=== PATIENT | female | born 1930 | race African-American/Black ===

== ENCOUNTER 2016-12-10 13:27 | Outpatient (CLI) | payer MEDICARE, MEDICAID ==
[2016-12-10 14:14] LABS: Anion Gap 18 mmol/L (10-20); BUN (Urea Nitrogen) 25 mg/dL (9.8-20.1); Calc. Creatinine Clearance 0 mL/min (70-130); Calcium 9.8 mg/dL (7.8-10.44); Carbon Dioxide 22 mmol/L (23-31); Chloride 102 mmol/L (98-107); Estimated GFR-MDRD 42; Glucose 181 mg/dL (83-110); Potassium 3.9 mmol/L (3.5-5.1); Sodium 138 mmol/L (136-145)
== END 2016-12-10 13:28 | disposition home or self-care (01) ==
LOC: MADLAB 13:27
PROVIDERS: ATTEND Internal Medicine
DX: N18.9 Chronic kidney disease, unspecified (principal); E11.65 Type 2 diabetes mellitus with hyperglycemia
CPT/HCPCS: 36415; 80048

== ENCOUNTER 2017-03-03 16:01 | Outpatient (CLI) | payer MEDICARE, MEDICAID ==
[2017-03-03 16:35] LABS: ALT (SGPT) 10 U/L (8-55); AST (SGOT) 12 U/L (5-34); Alkaline Phosphatase 111 U/L (40-150); Anion Gap 13 mmol/L (10-20); BUN (Urea Nitrogen) 31 mg/dL (9.8-20.1); Bilirubin, Total Less than 0.3 mg/dL (0.2-1.2); Calc. Creatinine Clearance 0 mL/min (70-130); Calcium 9.8 mg/dL (7.8-10.44); Carbon Dioxide 25 mmol/L (23-31); Chloride 104 mmol/L (98-107); Estimated GFR-MDRD 40; Globulin 3.6 g/dL (2.4-3.5); Glucose 164 mg/dL (83-110); Potassium 4.3 mmol/L (3.5-5.1); Protein, Total 7.6 g/dL (5.8-8.1); Sodium 138 mmol/L (136-145)
[2017-03-03 17:14] LABS: T4 6.4 ug/dL (4.87-11.72); Thyroid Stimulating Hormone 0.8474 uIU/mL (0.35-4.94)
== END 2017-03-03 16:02 | disposition home or self-care (01) ==
LOC: MADLAB 16:01
PROVIDERS: ATTEND Internal Medicine
DX: E11.65 Type 2 diabetes mellitus with hyperglycemia (principal); E03.9 Hypothyroidism, unspecified; R53.81 Other malaise; Z79.899 Other long term (current) drug therapy
CPT/HCPCS: 36415; 80053; 84436; 84443; 84479

== ENCOUNTER 2017-05-05 16:06 | Outpatient (CLI) | payer MEDICARE, MEDICAID ==
[2017-05-05 17:05] LABS: #Basophils 0.1 thou/uL (0.0-0.2); #Eosinphils 0.2 thou/uL (0.0-0.7); #Lymphocytes 2.4 thou/uL (1.20-3.40); #Monocytes 0.5 thou/uL (0.11-0.59); #Neutrophils 4.6 thou/uL (1.40-6.50); %Basophils 1.2 % (0.0-1.0); %Lymphocytes 30.8 % (21.0-51.0); %Monocytes 6.3 % (0.0-10.0); %Neutrophils 59.7 % (42.0-75.0); Hemoglobin 10.7 g/dL (12.0-16.0); Mean Corpuscular HGB CONC 32.2 g/dL (32.0-36.0); Mean Corpuscular Hemoglobin 26.9 pg (27.0-31.0); Mean Corpuscular Volume 83.6 fl (81.0-99.0); Mean Platelet Volume 10.3 fL (7.4-10.4); Platelet Count 233 thou/uL (130-400); RBC Distribution Width 15.1 % (11.5-14.5); Red Blood Cell (RBC) Count 3.96 mill/uL (4.20-5.40); White Blood Cell (WBC) Count 7.8 thou/uL (4.8-10.8)
[2017-05-05 17:40] LABS: ALT (SGPT) 16 U/L (8-55); AST (SGOT) 19 U/L (5-34); Albumin 4.1 g/dL (3.4-4.8); Alkaline Phosphatase 93 U/L (40-150); Anion Gap 14 mmol/L (10-20); BUN (Urea Nitrogen) 29 mg/dL (9.8-20.1); Bilirubin, Total 0.3 mg/dL (0.2-1.2); Calc. Creatinine Clearance 0 mL/min (70-130); Carbon Dioxide 22 mmol/L (23-31); Cardiac Risk 3.8 (Less than 4.5); Chloride 109 mmol/L (98-107); Cholesterol 181 mg/dl (< 200 Desired); Estimated GFR-MDRD 36; Globulin 4.8 g/dL (2.4-3.5); Glucose 102 mg/dL (83-110); HDL Cholesterol 48 mg/dL (>60 Neg Risk); LDL Cholesterol, Calculated 97 mg/dL; Potassium 4.7 mmol/L (3.5-5.1); Protein, Total 8.9 g/dL (6.0-8.3); Sodium 140 mmol/L (136-145); Triglycerides 180 mg/dL (Less than 150); Uric Acid 5.6 mg/dL (2.6-6.0)
[2017-05-06 21:12] LABS: Iron 81 ug/dL (50-170); Iron Binding Capacity, Total 335 mcg/dL (265-497)
[2017-05-07 18:34] LABS: Creatinine, Urine 63.87 mg/dL (47-110); Microalbumin Urine 14.1 mg/dL (0.5-50.0); Microalbumin/Creat Ratio 220.8 mg/g (Less than 30)
[2017-05-08 00:26] LABS: Creatinine, Urine 64.19 mg/dL (47-110)
== END 2017-05-05 16:07 | disposition home or self-care (01) ==
LOC: MADLABBHPM 16:06
PROVIDERS: ATTEND Family Medicine
DX: E78.5 Hyperlipidemia, unspecified (principal); E11.22 Type 2 diabetes mellitus with diabetic chronic kidney disease; E11.00 Type 2 diabetes mellitus with hyperosmolarity without nonketotic hyperglycemic-hyperosmolar coma (NKHHC); I12.9 Hypertensive chronic kidney disease with stage 1 through stage 4 chronic kidney disease, or unspecified chronic kidney disease; N18.3 Chronic kidney disease, stage 3 (moderate); D63.1 Anemia in chronic kidney disease; N17.9 Acute kidney failure, unspecified; E79.0 Hyperuricemia without signs of inflammatory arthritis and tophaceous disease
CPT/HCPCS: 36415; 80053; 80061; 82043; 82570; 82728; 83540; 83550; 84156; 84550; 85025; 86334

== ENCOUNTER 2017-05-13 09:00 | Outpatient (CLI) | payer MEDICARE, MEDICAID ==
--- NOTE | 2017-05-13 10:47 | ULT ---
RENAL ULTRASOUND: History: Chronic renal disease. FINDINGS: Real-time imaging of the right and left kidneys were performed. The right kidney measures 9.1 cm, th e left kidney 10.2 cm in size. Cortical thinning and mild increased echogenicity to both kidneys are present suggesting underlying medial renal parenchymal disease. Bladder region appears unremarkable . No signs of any cysts, mass, or obstruction. IMPRESSION: Cortical thinning of both kidneys with increased echogenicity to the kidneys noted suggesting medial renal parenchymal disease. POS: [facility]
== END 2017-05-13 09:01 | disposition home or self-care (01) ==
LOC: MADULT 09:00
PROVIDERS: ATTEND Internal Medicine Nephrology
DX: N18.3 Chronic kidney disease, stage 3 (moderate) (principal)
CPT/HCPCS: 76770

== ENCOUNTER 2018-02-22 13:48 | Emergency (ER) | payer MEDICARE, MEDICAID ==
[2018-02-22 14:22] LABS: Clarity Hazy (Clear); Glucose, Urine (Dipstick) Negative (Negative); Leukocyte Large (Negative); Nitrite Negative (Negative); Protein, Urine (Dipstick) 100 mg/dL (Neg-Trace); Urobilinogen 0.2 mg/dL (0.2-1.0)
[2018-02-22 14:23] LABS: Bilirubin Negative (Negative); Blood, Urine Small (Negative)
[2018-02-22 14:24] LABS: Bacteria/HPF 1+ HPF (None Seen); RBC/HPF 0-3 HPF (0-3); Squamous Epithelial 0-3 HPF (0-3)
[2018-02-22] MEDS ORDERED: Ciprofloxacin 500 MG TAB ONE (15:06)
== END 2018-02-22 15:15 | disposition home or self-care (01) ==
LOC: MADERS 13:48
DX: N39.0 Urinary tract infection, site not specified (principal); E11.9 Type 2 diabetes mellitus without complications; I10 Essential (primary) hypertension; M10.9 Gout, unspecified; Z79.899 Other long term (current) drug therapy
CPT/HCPCS: 81003; 81015; 87077; 87086; 87186; 99283

== ENCOUNTER 2018-06-03 17:52 | Emergency (ER) | payer MEDICARE, MEDICAID ==
[~2018-06-03 17:52] MED LIST: Lidocaine 1% 20 ML MDV ONE; Sodium Chloride Irrig Solution 250 ML BOT ONE
[2018-06-03] MEDS ORDERED: Adacel (T-DAP) 0.5 ML VIAL ONE (18:56)
== END 2018-06-03 19:10 | disposition home or self-care (01) ==
LOC: MADERS 17:52
DX: S61.211A Laceration without foreign body of left index finger without damage to nail, initial encounter (principal); G89.29 Other chronic pain; E11.9 Type 2 diabetes mellitus without complications; I10 Essential (primary) hypertension; Z79.899 Other long term (current) drug therapy; W26.8XXA Contact with other sharp object(s), not elsewhere classified, initial encounter
CPT/HCPCS: 12002; 90471; 90715; J2001

== ENCOUNTER 2018-06-15 10:09 | Emergency (ER) | payer MEDICARE, MEDICAID | END 2018-06-15 11:05 | disposition home or self-care (01) | LOC: MADERS 10:09 | DX: S61.211D Laceration without foreign body of left index finger without damage to nail, subsequent encounter (principal); Z79.899 Other long term (current) drug therapy ==

== ENCOUNTER 2018-06-28 16:36 | Emergency (ER) | payer MEDICARE, MEDICAID ==
[2018-06-28 17:00] LABS: Bilirubin Negative (Negative); Blood, Urine Moderate (Negative); Clarity Cloudy (Clear); Glucose, Urine (Dipstick) Negative (Negative); Leukocyte Large (Negative); Nitrite Negative (Negative); Protein, Urine (Dipstick) > or equal to 300 mg/dL (Neg-Trace); Specific Gravity, Urine 1.015 (1.005-1.030); Urobilinogen 0.2 mg/dL (0.2-1.0)
[2018-06-28 17:06] LABS: Bacteria/HPF 3+ HPF (None Seen); Squamous Epithelial 0-3 HPF (0-3)
[2018-06-28] MEDS ORDERED: Cephalexin 500 MG CAP ONE (17:17)
== END 2018-06-28 17:30 | disposition home or self-care (01) ==
LOC: MADERS 16:36
DX: N39.0 Urinary tract infection, site not specified (principal); E11.9 Type 2 diabetes mellitus without complications; I10 Essential (primary) hypertension; F32.9 Major depressive disorder, single episode, unspecified; Z79.899 Other long term (current) drug therapy
CPT/HCPCS: 81003; 81015; 87077; 87086; 87186; 99283

== ENCOUNTER 2018-10-27 14:07 | Emergency (ER) | payer MEDICARE, MEDICAID ==
[2018-10-27 15:10] LABS: Bilirubin Negative (Negative); Blood, Urine Moderate (Negative); Clarity Cloudy (Clear); Glucose, Urine (Dipstick) 100 mg/dL (Negative); Leukocyte Large (Negative); Nitrite Positive (Negative); Protein, Urine (Dipstick) > or equal to 300 mg/dL (Neg-Trace)
[2018-10-27 15:11] LABS: Bacteria/HPF 3+ HPF (None Seen); Squamous Epithelial 0-3 HPF (0-3)
[2018-10-27] MEDS ORDERED: Cephalexin 500 MG CAP ONE (15:38)
== END 2018-10-27 15:45 | disposition home or self-care (01) ==
LOC: MADERS 14:07
DX: N39.0 Urinary tract infection, site not specified (principal); Z79.899 Other long term (current) drug therapy
CPT/HCPCS: 81003; 81015; 99283

== ENCOUNTER 2020-01-04 09:25 | Emergency (ER) | payer MEDICARE, MEDICAID ==
--- NOTE | 2020-01-04 10:18 | RAD ---
Exam: Chest one view HISTORY:Altered mental status Comparison: 02/14/2016 FINDINGS: Cardiac silhouette: Normal Aorta: Atherosclerosis of the aortic knob Pulmonary vessels: Normal Costophrenic angles: Clear LUNGS: Chronic lung parenchymal changes. Possible 2.3 cm right hilar mass, incompletely evaluated. Pneumothorax: None Osseous abnormalities: None IMPRESSION: 1. Possible 2.3 cm right hilar mass. Consider CT for better evaluation. 2. Chronic lung parenchymal changes.
[2020-01-04] MEDS ORDERED: Iopamidol 370 76% 125 ML VIAL FS ONE (10:51)
[2020-01-04 10:56] LABS: #Basophils 0.1 thou/uL (0.0-0.2); #Eosinphils 0.1 thou/uL (0.0-0.7); #Lymphocytes 1.3 thou/uL (1.20-3.40); #Monocytes 0.5 thou/uL (0.11-0.59); #Neutrophils 3.4 thou/uL (1.40-6.50); %Basophils 0.9 % (0.0-1.0); %Eosinophils 2.3 % (0.0-10.0); %Lymphocytes 23.9 % (21.0-51.0); %Neutrophils 63.8 % (42.0-75.0); Hemoglobin 10.1 g/dL (12.0-16.0); Mean Corpuscular HGB CONC 30.3 g/dL (32.0-36.0); Mean Corpuscular Hemoglobin 25.4 pg (27.0-31.0); Mean Corpuscular Volume 83.7 fL (78.0-98.0); Mean Platelet Volume 9.6 fL (7.4-10.4); Platelet Count 214 thou/uL (130-400); Red Blood Cell (RBC) Count 3.99 mill/uL (4.20-5.40); White Blood Cell (WBC) Count 5.4 thou/uL (4.8-10.8)
[2020-01-04 11:10] LABS: ALT (SGPT) 16 U/L (8-55); AST (SGOT) 18 U/L (5-34); Alkaline Phosphatase 165 U/L (40-110); Anion Gap 14 mmol/L (10-20); BUN (Urea Nitrogen) 28 mg/dL (9.8-20.1); Bilirubin, Total Less than 0.2 mg/dL (0.2-1.2); Calc. Creatinine Clearance 0 mL/min (70-130); Calcium 9.2 mg/dL (7.8-10.44); Carbon Dioxide 26 mmol/L (23-31); Chloride 107 mmol/L (98-107); Estimated GFR-MDRD 49; Globulin 3.4 g/dL (2.4-3.5); Glucose 143 mg/dL (83-110); Potassium 3.5 mmol/L (3.5-5.1); Protein, Total 7.4 g/dL (6.0-8.3); Sodium 143 mmol/L (136-145)
--- NOTE | 2020-01-04 11:46 | CT ---
CT Chest W Con History: Hilar mass Comparison: Radiograph same day Findings: Mild atelectatic changes in lung bases. Pulmonary trunk and pulmonary arteries are dilated, corresponding to the hilar mass seen on recent radiograph. The pulmonary trunk measures 4 cm. Multiple hypodensities of the thyroid. There is tortuosity of the right subclavian artery indicating chronic long-standing hypertension. No mediastinal adenopathy. Low-grade intrahepatic biliary dilatation. Subtle hypodensity of the splee n measures less than 5 mm, likely of no clinical significance. Multiple hemangiomas of the thoracic spine. No acute displaced rib fracture. No displaced rib fracture. Impression: 1. Corresponding to the right hilar mass is a dilated right pulmonary artery. 2. Pulmonary trunk and right and left main pulmonary artery dilatation suggesting pulmonary hypertens ion. 3. No acute inflammatory process within the chest. 4. Evidence of prior granulomatous disease.
[2020-01-04] MEDS ORDERED: Sodium Chloride 0.9% 100 ML ONE (12:02)
[2020-01-04] MEDS ORDERED: Azithromycin 250 MG TAB ONE (12:02)
[2020-01-04] MEDS ORDERED: cefTRIAXone\\ROCEPHIN 1 GM VIAL ONE (12:02)
== END 2020-01-04 12:44 | disposition home or self-care (01) ==
LOC: MADERS 09:25
DX: I27.20 Pulmonary hypertension, unspecified (principal); J18.9 Pneumonia, unspecified organism; D64.9 Anemia, unspecified; K21.9 Gastro-esophageal reflux disease without esophagitis; E78.5 Hyperlipidemia, unspecified; I10 Essential (primary) hypertension; E78.00 Pure hypercholesterolemia, unspecified; Z79.899 Other long term (current) drug therapy
CPT/HCPCS: 71045; 71260; 80053; 85025; 96365; J0696; J3490; Q9967

== ENCOUNTER 2021-04-22 10:31 | Outpatient (CLI) | payer MEDICARE, MEDICAID ==
[2021-04-22 11:00] LABS: ALT (SGPT) 22 U/L (8-55); AST (SGOT) 22 U/L (5-34); Albumin 3.9 g/dL (3.4-4.8); Alkaline Phosphatase 165 U/L (40-110); Anion Gap 16 mmol/L (10-20); BUN (Urea Nitrogen) 38 mg/dL (9.8-20.1); Bilirubin, Total 0.4 mg/dL (0.2-1.2); Calc. Creatinine Clearance 0 mL/min (70-130); Calcium 9.5 mg/dL (7.8-10.44); Carbon Dioxide 23 mmol/L (23-31); Chloride 110 mmol/L (98-107); Cholesterol 118 mg/dl (< 200 Desired); Globulin 3.5 g/dL (2.4-3.5); Glucose 188 mg/dL (83-110); HDL Cholesterol 40 mg/dL (>60 Neg Risk); LDL Cholesterol, Calculated 60 mg/dL; Protein, Total 7.4 g/dL (5.8-8.1); Sodium 145 mmol/L (136-145); Triglycerides 92 mg/dL (Less than 150); Uric Acid 5.3 mg/dL (2.6-6.0)
== END 2021-04-22 10:32 | disposition home or self-care (01) ==
LOC: MADLAB 10:31
PROVIDERS: ATTEND Family Medicine
DX: E78.5 Hyperlipidemia, unspecified (principal); E79.0 Hyperuricemia without signs of inflammatory arthritis and tophaceous disease; R74.8 Abnormal levels of other serum enzymes
CPT/HCPCS: 36415; 80053; 80061; 84075; 84550